=== PATIENT | female | born 1980 | race Caucasian/White ===

== ENCOUNTER 2017-05-28 07:15 | Emergency (ER) | payer MEDICAID ==
[~2017-05-28] VITALS: Ht 170.2 cm; Wt 88.0 kg
[2017-05-28] MEDS ORDERED: ketorolac trometh inj. 60 MG/2 ML VIAL IM ONE (07:50)
[2017-05-28] MEDS ORDERED: morphine 4 MG/ML inj SYRINge IM ONE ×2 (07:50→09:00)
[2017-05-28] MEDS ORDERED: ondansetron 4mg rapidly disintigrating tab PO ONE (07:50)
[2017-05-28] MEDS ORDERED: BACL10TA PO (08:18)
[2017-05-28] MEDS ORDERED: GABA-532 PO (08:18)
[2017-05-28] MEDS ORDERED: NAPR250T4 PO (08:18)
[2017-05-28] MEDS ORDERED: HYDR-565 PO (08:18)
[2017-05-28 09:27] VITALS: BP 100/60
== END 2017-05-28 09:35 | disposition home or self-care (01) ==
LOC: ER 07:15
DX: M54.5 Low back pain (principal); G89.29 Other chronic pain; Z56.0 Unemployment, unspecified; Z79.899 Other long term (current) drug therapy
CPT/HCPCS: 72100; 96372; 99284; J1885; J2270

== ENCOUNTER 2021-11-30 11:00 | Emergency (ER) | payer MEDICAID ==
[~2021-11-30] VITALS: Ht 170.2 cm; Wt 86.8 kg
[~2021-11-30 11:00] MED LIST: BACL10TA PO; GABA-532 PO; HYDR-4353 PO; NAPR-1170 PO
[2021-11-30 11:06] VITALS: BP 127/79
[2021-11-30] MEDS ORDERED: ketorolac trometh. 30mg/ml inj. IM ONE (15:35)
== END 2021-11-30 15:57 | disposition home or self-care (01) ==
LOC: ER 11:01
DX: G89.29 Other chronic pain (principal); M25.462 Effusion, left knee; M25.562 Pain in left knee; M54.9 Dorsalgia, unspecified; F17.200 Nicotine dependence, unspecified, uncomplicated; Z56.0 Unemployment, unspecified; Z79.899 Other long term (current) drug therapy; Z79.1 Long term (current) use of non-steroidal anti-inflammatories (NSAID)
CPT/HCPCS: 29505; 73564; 96372; 99284; J1885